=== PATIENT | male | born 2000 | race Caucasian/White ===

== ENCOUNTER 2024-11-25 12:08 | Emergency (ER) | payer SELFPAY ==
--- NOTE | ~2024-11-25 | US_ITS ---
EXAMINATION: US SCROTUM WITH DOPPLER COMPLETE HISTORY: pain. COMPARISON: There are no prior studies for comparison. FINDINGS: Real-time grayscale ultrasound imaging of the scrotum was performed. Color and spectral Doppler analysis was also performed. RIGHT TESTICLE: The right testis measures 4.0 x 2.1 x 2.7 cm and demonstrates normal homogeneous echotexture. No masses are seen. The right testis demonstrates normal arterial and venous color Doppler and spectral waveforms. RIGHT EPIDIDYMIS: Normal in size, shape, and vascularity. There is a subcentimeter epididymal head cyst. LEFT TESTICLE: The left testis measures 4.0 x 1.9 x 2.6 cm and demonstrates normal homogeneous echotexture. No masses are seen. The left testis demonstrates normal arterial and venous color Doppler and spectral waveforms. LEFT EPIDIDYMIS: Normal in size, shape, and vascularity. There is a subcentimeter epididymal head cyst. VARICOCELE: None. HYDROCELE: No significant hydrocele is seen. OTHER COMMENTS: None. US/US scrotum IMPRESSION: Subcentimeter bilateral epididymal head cysts. Otherwise unremarkable scrotal ultrasound. Electronically signed by: Robby Paul MD 11/25/2024 01:17 PM EDT
--- NOTE | ~2024-11-25 | US_ITS ---
EXAMINATION: US SCROTUM WITH DOPPLER COMPLETE HISTORY: pain. COMPARISON: There are no prior studies for comparison. FINDINGS: Real-time grayscale ultrasound imaging of the scrotum was performed. Color and spectral Doppler analysis was also performed. RIGHT TESTICLE: The right testis measures 4.0 x 2.1 x 2.7 cm and demonstrates normal homogeneous echotexture. No masses are seen. The right testis demonstrates normal arterial and venous color Doppler and spectral waveforms. RIGHT EPIDIDYMIS: Normal in size, shape, and vascularity. There is a subcentimeter epididymal head cyst. LEFT TESTICLE: The left testis measures 4.0 x 1.9 x 2.6 cm and demonstrates normal homogeneous echotexture. No masses are seen. The left testis demonstrates normal arterial and venous color Doppler and spectral waveforms. LEFT EPIDIDYMIS: Normal in size, shape, and vascularity. There is a subcentimeter epididymal head cyst. VARICOCELE: None. HYDROCELE: No significant hydrocele is seen. OTHER COMMENTS: None. US/US scrotum doppler IMPRESSION: Subcentimeter bilateral epididymal head cysts. Otherwise unremarkable scrotal ultrasound. Electronically signed by: Robby Paul MD 11/25/2024 01:17 PM EDT
--- NOTE | 2024-11-25 12:11 | ED.GENADULT ---
HPI - General Adult General Chief complaint: Urogenital-Male Stated complaint: ? Testicular Torsion Time Seen by Provider: 11/25/24 13:01 History of Present Illness HPI narrative: Patient is a 24-year-old male claims he is not sexually active complaining of pain in the testicular area worse on the left side. There is no fever no chills. No penile discharge. Not sexually active. Complaining of pain been ongoing somewhat sharp. Comes and goes. Related Data Previous Rx's ?Medication ?Instructions ?Recorded ibuprofen 400 mg tablet 400 mg PO Q6H PRN pain #20 tabs 11/25/24 Allergies Allergy/AdvReac Type Severity Reaction Status Date / Time No Known Allergies Allergy Verified 11/25/24 12:16 Review of Systems Review of Systems: No fever no chills no chest pain or shortness breath no systemic complaints PMFSH Past Medical History Attestation statement: The following information was validated with the patient. Social History Social History Advance Directives: No Advance Directives Information Provided: Yes Do you have a plan to hurt others: No Plan Physical Exam ED Vital Signs: Vital Signs - 24 hr 11/25/24 12:13 11/25/24 14:40 Temperature 97.1 F 98.2 F Pulse Rate 134 H 93 Respiratory Rate 18 16 Blood Pressure 150/83 H 105/81 Pulse Oximetry 97 100 Oxygen Delivery Method Room Air BMI result Body Mass Index 21.5 Appearance: Alert. Oriented X3. No acute distress. Eyes: Pupils equal, round and reactive to light. ENT: Pharynx normal. Neck: Normal inspection. Neck supple. No lymph nodes noted. No crepitus CVS: Normal heart rate and rhythm. Pulses normal. Normal S1 and S2 Respiratory: No respiratory distress. Breath sounds normal. No Wheezing. No rales Abdomen: Soft and nontender. No rigidity. No distention. good BS x4 there is no pain on palpation of the testicle. There is no discharge on stripping of the penis. There is no hernia that was palpable. Cremasteric reflex was intact. Skin: Skin warm and dry. Normal skin color. Normal skin turgor. Extremities: No lower extremity edema. Neurovascular intact to all extremities. No Lacerations. No Rash Neuro: Oriented X 3. No motor deficit. No sensory deficit. Moving all extermities. No slurred speech Course Course Course Narrative: RME, this is a rapid medical exam performed by Vern Andino please refer to primary provider for complete H&P- 24 year old male presents for evaluation of pain that has been waxing and waning since this morning. Denies any new sexual partners. Denies any burning with urination or blood in the urine. Plan for labs, urinalysis and a scrotal ultrasound Medical Decision Making Medical Decision Making MDM Narrative: Patient is 24 years old not sexually active complaining of testicular pain. Ultrasound was done. There is no evidence for torsion. The ultrasound shows Subcentimeter bilateral epididymal head cysts. Otherwise unremarkable scrotal ultrasound. Will check patient's urine. GC chlamydia was sent. If it is negative will discharge home. Patient's UA is negative. GC chlamydia sent. Patient to be discharged home Differential Diagnosis Differential Diagnoses: The differential diagnosis associated with the presentation includes Torsion, epididymitis Admission/Observation Consideration of admission/observation: Escalation of care including admission/observation considered Lab Data MDM Lab Attestation statement: I reviewed the patient's lab results. 11/25/24 12:34 11/25/24 12:34 Labs: Lab Results 11/25/24 11/25/24 Range/Units 12:34 14:32 WBC 6.7 (4.8-10.8) X10*3/uL RBC 5.30 (4.60-5.80) X10*6/uL Hgb 14.9 (14.0-18.0) g/dl Hct 43.7 (42.0-52.0) % MCV 82.5 (80.0-98.0) fL MCH 28.1 (27.0-33.0) pg MCHC 34.1 (31.0-36.0) g/dl RDW 12.5 (11.0-16.0) % Plt Count 257 (160-400) X10*3/uL MPV 9.7 (9.4-12.4) fL Immature Gran % (Auto) 0.3 (0.0-0.4) % Neut % (Auto) 45.7 (45-73) % Lymph % (Auto) 39.9 (20-40) % [place] % (Auto) 8.9 (2-11) % Eos % (Auto) 4.1 H (0-4) % Baso % (Auto) 1.1 (0-2) % Lymph # (Auto) 2.7 (1.2-4.9) X10*3/uL [place] # (Auto) 0.6 (0.1-1.2) X10*3/uL Eos # (Auto) 0.3 (0.0-0.4) X10*3/uL Baso # (Auto) 0.1 (0.0-0.2) X10*3/uL Abs Immat Gran (auto) 0.02 (0.00-0.03) X10*3/uL Absolute Neuts (auto) 3.1 (2.0-8.3) x10*3/uL Absolute Nucleated RBC 0.000 (0.0-0.012) X10*3/uL Nucleated RBC % (auto) 0.0 (0.0-0.2) /100WBC Sodium 137 (135-145) mmol/L Potassium 3.4 (3.3-5.1) mmol/L Chloride 105 (96-108) mmol/L Carbon Dioxide 25 (22-29) mmol/L Anion Gap 10 L (12-20) BUN 8 L (9-16) mg/dL Creatinine 0.89 (0.5-1.4) mg/dL Estim Creat Clear Calc 105.8 Estimated GFR > 60 Random Glucose 128 H (60-115) mg/dL Calcium 8.5 (8.4-10.2) mg/dL Total Bilirubin 0.6 (0.0-1.0) mg/dL AST 26 (5-37) U/L ALT 46 H (0-40) U/L Alkaline Phosphatase 90 (39-117) U/L Total Protein 6.7 (6.5-8.0) g/dL Albumin 4.1 (3.5-5.0) g/dL Lipase 24 (8-78) U/L Urine Color Yellow Urine Appearance Clear Urine pH 6.0 (5.0-9.0) Ur Specific Melvin 1.010 (1.005-1.025) Urine Protein Negative (Neg-Trace) mg/dL Urine Glucose (UA) Negative (Negative) mg/dL Urine Ketones Negative (Negative) mg/dL Urine Blood Negative (Negative) Urine Nitrite Negative (Negative) Ur Leukocyte Esterase Negative (Negative) Urine RBC 0-2 (0-2) /HPF Urine WBC 0-5 (0-5) /HPF Ur Squamous Epith Cells 0-2 (0-2) /HPF Urine Bacteria None Seen (None Seen) Hyaline Casts 0-2 (0-2) /LPF Radiology Impression Discussion of test interpretation with radiology: I have reviewed the radiologist's reading. Independent Historian Clinical information obtained from an independent historian. History obtained from or confirmed by: Other (Patient aunt) Social Determinants Patient?s care significantly limited by Social Determinants of Health including: Problems related to primary support group Discharge Plan Discharge Clinical Impression: Cyst, epididymis Instructions: Testicle Pain (ED) Prescriptions: New ibuprofen 400 mg tablet 400 mg PO Q6H PRN (Reason: pain) Qty: 20 0RF Print Language: Greenlandic
[2024-11-25 12:13] VITALS: BP 150/83; PULSE 134; RESP 18; TEMP 36.2; O2SAT 97; BMI 21.5
--- NOTE | 2024-11-25 12:15 | ECG_ITS ---
Test Reason : tachycardia Blood Pressure : */* mmHG Vent. Rate : 124 BPM Atrial Rate : 124 BPM P-R Int : 134 ms QRS Dur : 74 ms QT Int : 288 ms P-R-T Axes : 79 68 58 degrees QTcB Int : 413 ms Sinus tachycardia Right atrial enlargement Cannot rule out Inferior infarct , age undetermined Abnormal ECG No previous ECGs available Referred By: Suraj Andino Electronically Signed By: KIERAN VALERO MD
[2024-11-25 12:37] LABS: MANUAL DIFF FLAG NO
[2024-11-25 12:39] LABS: Basophils Absolute Auto 0.1 X10*3/uL (0.0-0.2); Basophils Percent Auto 1.1 % (0-2); Eosinophils Absolute Auto 0.3 X10*3/uL (0.0-0.4); Eosinophils Percent Auto 4.1 % (0-4); Hematocrit 43.7 % (42.0-52.0); Hemoglobin 14.9 g/dl (14.0-18.0); Imm Gran Abs Auto 0.02 X10*3/uL (0.00-0.03); Imm Gran Pct Auto 0.3 % (0.0-0.4); Lymphocytes Absolute Auto 2.7 X10*3/uL (1.2-4.9); Lymphocytes Percent Auto 39.9 % (20-40); Mean Corpuscular HGB Conc 34.1 g/dl (31.0-36.0); Mean Corpuscular Hemoglobin 28.1 pg (27.0-33.0); Mean Corpuscular Volume 82.5 fL (80.0-98.0); Mean Platelet Volume 9.7 fL (9.4-12.4); Monocytes Absolute Auto 0.6 X10*3/uL (0.1-1.2); Monocytes Percent Auto 8.9 % (2-11); Neutrophils Absolute Auto 3.1 x10*3/uL (2.0-8.3); Neutrophils Percent Auto 45.7 % (45-73); Platelet Count 257 X10*3/uL (160-400); Red Cell Distribution Width 12.5 % (11.0-16.0); White Blood Count 6.7 X10*3/uL (4.8-10.8)
[2024-11-25 12:58] LABS: Alanine Aminotransferase 46 U/L (0-40); Albumin Level 4.1 g/dL (3.5-5.0); Alkaline Phosphatase 90 U/L (39-117); Anion Gap 10 (12-20); Aspartate Amino Transferase 26 U/L (5-37); Bilirubin Total 0.6 mg/dL (0.0-1.0); Blood Urea Nitrogen 8 mg/dL (9-16); Calcium 8.5 mg/dL (8.4-10.2); Carbon Dioxide 25 mmol/L (22-29); Chloride 105 mmol/L (96-108); Creatinine Clr Calc Pharmacy 105.8; Estimated Glomerular Filt Rate > 60; Glucose Random 128 mg/dL (60-115); Lipase 24 U/L (8-78); Potassium 3.4 mmol/L (3.3-5.1); Sodium 137 mmol/L (135-145); Total Protein 6.7 g/dL (6.5-8.0)
--- NOTE | 2024-11-25 14:18 | PC.NURSE ---
External exam performed by the provider
[2024-11-25 14:39] LABS: Appearance Urine Clear; Color Urine Yellow; Glucose Urine UA Negative (Negative); Leukocyte Esterase Urine Negative (Negative); Nitrite Urine Negative (Negative); Urine Blood Negative (Negative); Urine Ketones Negative (Negative); Urine Protein Negative (Neg-Trace)
[2024-11-25 14:40] VITALS: BP 105/81; PULSE 93; RESP 16; TEMP 36.8; O2SAT 100
[2024-11-25 14:42] LABS: Bacteria Urine None Seen (None Seen); Hyaline Casts Urine 0-2 /LPF (0-2); RBC Urine 0-2 /HPF (0-2); Squamous Epithelial Cell Urine 0-2 /HPF (0-2); WBC Urine 0-5 /HPF (0-5)
[2024-11-25 15:38] VITALS: BP 105/81; PULSE 93; RESP 16; TEMP 36.8; O2SAT 100
[2024-11-25 16:23] LABS: CT PCR NOT DETECTED (Not Detect.); NG PCR NOT DETECTED (Not Detect.)
== END 2024-11-25 15:39 | disposition home or self-care (01) ==
PROVIDERS: Physician Assistant; Emergency Provider Emergency Medicine Emergency Medical Services
DX: N50.3 Cyst of epididymis (principal); N50.812 Left testicular pain; R00.0 Tachycardia, unspecified
CPT/HCPCS: 36415; 76870; 80053; 81001; 83690; 85025; 87491; 87591; 93005; 93975; 99284; 99285

== ENCOUNTER → 2024-11-25 12:14 | Outpatient (BNV) | payer SELFPAY | PROVIDERS: Emergency Provider Emergency Medicine Emergency Medical Services; Visit Provider Radiology Diagnostic Radiology | DX: N50.3 Cyst of epididymis (principal) | CPT/HCPCS: 76870; 93975 ==

== ENCOUNTER → 2024-11-25 12:15 | Outpatient (BNV) | payer SELFPAY | PROVIDERS: Emergency Provider Emergency Medicine Emergency Medical Services; Visit Provider Internal Medicine Cardiovascular Disease | DX: I51.7 Cardiomegaly (principal) | CPT/HCPCS: 93010 ==